=== PATIENT | male | born 1960 | race American Indian/Alaskan Native ===

== ENCOUNTER → 2018-11-11 | Outpatient (CLI) | payer OTHER ==
--- NOTE | 2018-11-11 13:12 | Diagnostic Imaging Report ---
EXAM: US ABDOMEN COMPLETE DATE: 11/11/2018 12:13 PM INDICATION: Elevated bilirubin and serum ferritin COMPARISON: None TECHNIQUE: Transverse and longitudinal martinez scale and color doppler sonographic images of the upper abdomen were obtained. FINDINGS: LIVER 14.1 cm in the right midclavicular line. Increased echogenicity, normal contour, no masses. SPLEEN 11.5 cm in maximum diameter. Normal echogenicity, no masses. GALLBLADDER Surgically removed BILE DUCTS No intra nor extra-hepatic biliary dilation. Common bile duct measures 0.4 cm PANCREAS: Poorly visualized. RIGHT KIDNEY: 10.9 cm Echogenicity: Normal Collecting System: No hydronephrosis Stones: None Cyst/Mass: None LEFT KIDNEY: 12.9 cm Echogenicity: Normal Collecting System: No hydronephrosis Stones: None Cyst/Mass: None VESSELS: Aorta: Nonaneurysmal Inferior Vena Cava: Patent Main Portal Vein: 1 cm, normal size with hepatopetal flow. FREE FLUID: None IMPRESSION: Increased hepatic parenchymal echogenicity compatible with steatosis. Status post cholecystectomy. Signed by: Dr. Ruddy Brasher M.D. on 11/11/2018 1:09 PM
== END ==
LOC: US 12:04
PROVIDERS: ATTEND Internal Medicine Gastroenterology
DX: R17 Unspecified jaundice (principal); R19.7 Diarrhea, unspecified; R77.8 Other specified abnormalities of plasma proteins; E66.9 Obesity, unspecified; Z71.3 Dietary counseling and surveillance; Z87.891 Personal history of nicotine dependence
CPT/HCPCS: 76700